=== PATIENT | male | born 1945 | race Caucasian/White ===

== ENCOUNTER 2016-10-07 07:44 | Observation (INO) | payer OTHER ==
--- NOTE | 2016-10-06 15:41 | PDHPUP ---
History & Physical Update H&P update statement: This history and physical update is based on an assessment of the patient which was completed after admission or registration (within 24 hours), but prior to the surgery/procedure. H&P update: H&P reviewed & patient examined, no change in patient's condition since H&P completed
--- NOTE | 2016-10-06 15:52 | GHP ---
[f rep st] PREOP HISTORY AND PHYSICAL ADMISSION DIAGNOSIS: Benign prostatic hypertrophy with urinary obstruction. HISTORY OF PRESENT ILLNESS: This is a gentleman who has had significant BPH with obstruction. He h as had a prostate ultrasound that shows a large intravesical lobe of the prostate. The prostate is 103 g in size. He had a PSA of 4.1 with a PSA density of 0.04. He has had an AUA score in the past that reveals no significant outlet obstruction and he has had ultrasounds in the past but without b iopsy. At the present time, he is admitted for a TURP. Options, indication, complications and expe ctations discussed. Written and verbal consent was obtained. He is admitted for the above procedur e. He has been on Flomax as medical treatment. He has no significant family history. His AUA scor e as noted showed a quality of life of 5, a total score of 4, and urinary retention of 101 mL with a normal urinalysis. REVIEW OF SYSTEMS: Negative cardiac, respiratory, GI and endocrine. PHYSICAL EXAMINATION: VITAL SIGNS: Stable. CHEST: Clear. HEART: Regular rate and rhythm. ABDO MEN: Normal. No organomegaly, rebound or guarding. LOWER EXTREMITIES: Normal. PROSTATE: Enlarg ed and had somewhat of a nodule on the left side of the prostate, which has been stable for years. PLAN: At the present time, he is admitted for a TURP. /[id number]/MODL
[2016-10-07] MEDS ORDERED: LIDOCAINE 1% 2 ML INJ ONE (08:52)
[2016-10-07] MEDS ORDERED: ceFAZolin 2 GM/DEXTROSE 100 ML IV ONE (09:00)
[2016-10-07] MEDS ORDERED: LIDOCAINE 1% 2 ML INJ ID PRN (09:45)
[2016-10-07] MEDS ORDERED: LR 1,000 ML IV ONE (09:45)
--- NOTE | 2016-10-07 10:55 | PDANEPAE ---
ANE History of Present Illness TURP ANE Past Medical History - Cardiovascular History Hx Hypertension: No Hx Arrhythmias: No Hx Chest Pain: No Hx Coronary Artery / Peripheral Vascular Disease: No Hx CHF / Valvular Disease: No Hx Palpitations: No - Pulmonary History Hx COPD: No Hx Asthma/Reactive Airway Disease: No Hx Recent Upper Respiratory Infection: No Hx Oxygen in Use at Home: No Hx Sleep Apnea: No Sleep Apnea Screening Result - Last Documented: Negative Pulmonary History Comment: "coughs up crap" seasonal allergy - Neurologic History Hx Cerebrovascular Accident: No Hx Seizures: No Hx Dementia: No - Endocrine History Hx Diabetes: No Hypothyroid: No Obesity: no Endocrine History Comment: thyroid Rx s/p thyroid sx - Renal History Hx Renal Disorders: Yes Renal History Comment: BPH , urinary retention - Liver History Hx Hepatic Disorders: No - Neurological & Psychiatric Hx Hx Neurological and Psychiatric Disorders: Yes Neurological / Psychiatric History Comment: R sciatica see chiropractor - Cancer History Hx Cancer: No - Congenital Disorder History Hx Congenital Disorders: No - GI History GERD: no Hx Gastrointestinal Disorders: No - Other Health History Other Health History: 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 glaucoma-on RX - Chronic Pain History Chronic Pain: No - Surgical History Prior Surgeries: appy. philippe. tonsillectomy. vagus sx for ulcers. thyroid sx ANE Review of Systems - Exercise capacity METS (RN): 4 METS ANE Patient History - Allergies Allergies/Adverse Reactions: adhesive tape Allergy (Mild, Verified 10/07/16 09:52) Rash morphine Allergy (Verified 10/06/16 13:55) Vomiting Penicillins Allergy (Verified 10/06/16 13:55) Hives - Home Medications Home Medications: Lumigan Drops 01/08/12 [Last Taken 10/06/16] Synthroid Daily 01/08/12 [Last Taken 10/06/16] Tamsulosin HCl 10/06/16 [Last Taken 10/06/16] - NPO status NPO Since - Liquids (Date): 10/06/16 NPO Since - Liquids (Time): 22:00 NPO Since - Solids (Date): 10/06/16 NPO Since - Solids (Time): 21:00 - Anes Hx Anes Hx: slow to awaken from anesthesia - Smoking Hx Smoking Status: Former smoker - Alcohol Use Alcohol Use: Other (2/day) - Family Anes Hx Family Anes Hx: none ANE Labs/Vital Signs - Vital Signs Blood Pressure: 122/76 Heart Rate: 57 Respiratory Rate: 16 O2 Sat (%): 96 Height: 173.99 cm Weight: 72.575 kg ANE Physical Exam - Airway Neck exam: decreased ROM Mallampati Score: Class 2 Mouth exam: normal dental/mouth exam - Pulmonary Pulmonary: no respiratory distress - Cardiovascular Cardiovascular: regular rate and rhythym - ASA Status ASA Status: II ANE Anesthesia Plan Anesthesia Plan: general endotracheal anesthesia
[2016-10-07] MEDS ORDERED: MIDAZOLAM 2 MG/2 ML VIAL IVP ONE (10:58)
[2016-10-07] MEDS ORDERED: SCOPOLAMINE HYDROBROMIDE 1.5 MG PATCH TD SCH (11:00)
[2016-10-07] MEDS ORDERED: LIDOCAINE 2% JELLY 20 ML (UROJECT) ONE (11:02)
[2016-10-07] MEDS ORDERED: fentaNYL 250 MCG/5 ML INJ ONE (11:14)
[2016-10-07] MEDS ORDERED: PROPOFOL 200 MG/20 ML VIAL ONE (11:14)
[2016-10-07] MEDS ORDERED: ONDANSETRON 4 MG/2 ML VIAL ONE (11:14)
[2016-10-07] MEDS ORDERED: ROCURONIUM 50 MG/5 ML VIAL ONE (11:14)
[2016-10-07] MEDS ORDERED: PROPOFOL/EMULSION 500 MG/50 ML BOTTLE IV ONE (11:14)
[2016-10-07] MEDS ORDERED: GLYCOPYRROLATE 0.2 MG/1 ML VIAL ONE (11:15)
[2016-10-07] MEDS ORDERED: PHENYLEPHRINE HCL 100 MCG/ML SYR ONE (11:15)
[2016-10-07] MEDS ORDERED: DEXAMETHASONE 4 MG/ML VIAL ONE (11:15)
[2016-10-07] MEDS ORDERED: ZOLPIDEM TARTRATE 5 MG TAB PO PRN (12:56)
[2016-10-07] MEDS ORDERED: OPIUM/BELLADONNA ALKALO SUPP PR PRN (12:56)
[2016-10-07] MEDS ORDERED: ACETAMINOPHEN 325 MG TAB PO PRN (12:56)
[2016-10-07] MEDS ORDERED: HYDROCODONE/APAP 5/325 TAB PO PRN (12:56)
[2016-10-07] MEDS ORDERED: ONDANSETRON DISINTEGRATING 4 MG TAB PO PRN (12:56)
[2016-10-07] MEDS ORDERED: D5W LR 1,000 ML IV SCH (13:00)
--- NOTE | 2016-10-07 13:06 | POSTOPPROG ---
Post Op Note Date of Operation: 10/07/16 Surgeon: Dann Reich Anesthesiologist: shiela Anesthesia: LMA Pre-op Diagnosis: bph Post-op Diagnosis: same Indication: same Procedure: turp Inf/Abcess present in the surg proc area at time of surgery?: No EBL: Minimal Drains: Other (cath--dictated) Specimen(s): sent
[2016-10-07] MEDS ORDERED: HYDROmorphONE/DILAUDID 1 MG/ML SYR IVP PRN (13:11)
[2016-10-07] MEDS ORDERED: NALOXONE HCL 0.4 MG/ML INJ IVP PRN (13:11)
[2016-10-07] MEDS ORDERED: fentaNYL 100 MCG/2 ML INJ IVP PRN (13:11)
--- NOTE | 2016-10-07 13:15 | POSTANESTH ---
Post Anesthetic Evaluation Cardiovascular Status: Normal, Stable Respiratory Status: Normal, Stable Level of Consciousness/Mental Status: Can Participate in Eval Pain Control: Adequate, Prn Tx Ordered Nausea/Vomiting Control: Adequate, Prn Tx Ordered
--- NOTE | 2016-10-07 13:55 | GOP ---
[f rep st] OPERATIVE REPORT DATE OF OPERATION: 10/07/2016 SURGEON: Dann Reich MD ANESTHESIA: General. ANESTHESIOLOGIST: Tori Rascon MD PREOPERATIVE DIAGNOSIS: Benign prostatic hypertrophy with urinary obstruction. POSTOPERATIVE DIAGNOSIS: Benign prostatic hypertrophy with urinary obstruction. PROCEDURE PERFORMED: Transurethral excision of the prostate. FINDINGS: SPECIMENS: Sent to pathology. ESTIMATED BLOOD LOSS: Less than 200. DESCRIPTION OF PROCEDURE: After appropriate anesthesia, the meatal stenosis was dilated to a 30-Scar nch Marcelo sound. Then, scope was passed under direct vision, and he had +3 trabeculation of cari dder with hyperemia noted but then he had the large obstructing bladder, lobe of the prostate, and t hen lateral lobar hypertrophy. The intravesical lobe was taken down with the bipolar and then right lateral lobe and right posterior lobe resected, and left lateral lobe and left portion of the poste rior lobe resected. At the end of the procedure, bladder was Ellik'd free of all chips and clots. Visualization revealed no residual chips or clots. Verumontanum and external sphincter approximated at the midline symmetrically. Ureteral orifices preserved, and he had a 3-way catheter passed into the bladder with 60 cc balloon inflated. Traction placed. And irrigated clear. He will be admitt ed for postoperative care. COMPLICATIONS: None. I will contact his family postop via phone. /[id number]/MODL
[2016-10-08 07:49] VITALS: BP 107/62; PULSE 53; TEMP 98.3; O2SAT 7
[2016-10-08 08:55] VITALS: RESP 18
--- NOTE | 2016-10-08 13:35 | GDS ---
[f rep st] DISCHARGE SUMMARY PREOPERATIVE DIAGNOSIS: Benign prostatic hyperplasia with urinary obstruction. BRIEF HISTORY AND HOSPITAL COURSE: This is a pleasant gentleman who was evaluated in our office for history of urinary tract symptoms. After a full evaluation, he was found to have BPH with obstruct ion. Options were discussed. He elected to undergo a transurethral excision of the prostate which he underwent without difficulty with Dr. Reich yesterday. He had his Wilkerson catheter removed this morning and after being able to urinate he is being discharge d home in good condition. FOLLOWUP: He is to follow up in our office in 3 weeks for a symptom check. /[id number]/MODL
[2016-10-10] MEDS ORDERED: PATCH REMOVAL 1 EA PATCH TD SCH (10:59)
== END 2016-10-08 11:28 | disposition home or self-care (01) ==
LOC: INTOOBSV 07:44 → F1N 07:44
PROVIDERS: ADMIT Specialist; ATTEND Specialist
PROC: 0VT08ZZ Resection of Prostate, Via Natural or Artificial Opening Endoscopic (ICD-10-PCS; principal; 2016-10-07 09:15)
DX: N40.1 Benign prostatic hyperplasia with lower urinary tract symptoms (principal); R97.20 Elevated prostate specific antigen [PSA]; R35.1 Nocturia; N40.2 Nodular prostate without lower urinary tract symptoms
CPT/HCPCS: 52601; J0690; J1100; J2250; J2370; J2405; J2704; J3010